=== PATIENT | female | born 1980 | race Caucasian/White ===

== ENCOUNTER 2016-09-25 08:15 | Outpatient (RCR) | payer OTHER ==
--- NOTE | 2016-09-02 15:13 | PT/OT/ST INITIAL EVALUATION ---
[facility], [facility]. PHYSICAL/OCCUPATIONAL THERAPY [address] [place] [id number] PLAN OF CARE/ASSESSMENT FOR OUTPATIENT REHABILITATION (Complete for Initial Claims Only) 1. PATIENT'S NAME Darby Melgar 2. ACC. No [id number] 3. REFERRING PHYSICIAN [facility] with Elsy Cloud MD 4. PRIMARY DX Neck pain with right upper back and arm radiculopathy. 5. SECONDARY DX 6. ONSET DATE November 2015. 7. REFERRAL DATE 08/20/2016 8. SOC. DATE/TIME 08/28/2016 9. PRIOR LEVEL OF FUNCTION; PERTINENT HISTORY (Prior therapy results, reason for referral.) S: Prior to therapy session, the patient did consent to today's evaluation and treatment. The patient is a 36-year-old female who presents to physical therapy from [facility] in order to address chronic neck and right-sided upper back and arm radicular symptoms. The patient reports in November 2015 she began experiencing tingling in the biceps that has since progressed into her thumb and the dorsum of her forearm on the right side. 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 She noticed the sensation to be constant, but was aggravated by pitching and throwing motions, as well as participating in team workouts. The patient does note a few weeks ago she began to notice increased tingling, however, she has not noticed any changes as far as strength related to her pain. Prior level of function: The patient was able to actively participate in all team workouts and practices without any pain. Current functional level: Currently the patient is unable to participate in any strengthening activities, as well as has limited her participation in throwing and pitching during softball practices. 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 Pain level is 5/10. It is constant and maximum pain level greatest at night is an 8 to 9/10. Aggravating factors: The patient notes her pain is aggravated by slouching, moving her arm in any way and bending or extending her neck. Relieving factors: Minimal relieving factors have been reported. Past medical history: Unremarkable. Medication list: The patient is currently taking Advil or ibuprofen as needed. The patient's goal for physical therapy is to have no pain or tingling in her neck and right upper extremity. 10. INITIAL ASSESSMENT/SAFETY PRECAUTIONS/MEDICAL COMPLICATIONS (Level of function at start of care. Be specific, use objective measures, list problems.) O: APPEARANCE AND OBSERVATION: Observation of the patient's posture in standing reveals neutral alignment throughout the body. She does demonstrate increased scapular winging with functional shoulder internal rotation. Mild decrease in the cervical lordosis. PALPATION: The patient demonstrates palpable tightness along the bilateral parascapular musculature, the alvarez surface of the right forearm, and throughout the bilateral thoracic and cervical paraspinals. SPECIAL TESTS: The patient demonstrates positive findings on the left cervical compression test to the left, positive ulnar nerve tension noted with the upper limb tension test on the right, and negative on the left for ulnar nerve, median, and radial nerve issues. The patient scored a 47.5% disability on the Trever and Mior cervical spine questionnaire. MOBILITY: The patient has hypomobility throughout C1 through C5 with increased pain with PA to the facets through those segments. She also has mild hypomobility throughout the upper thoracic spine. RANGE OF MOTION/FLEXIBILITY: Cervical flexion is limited to 10 degrees and painful. Extension 43 degrees, left cervical rotation 59 degrees and painful and right 72 degrees. STRENGTH: Bilateral shoulder flexion, abduction, and internal rotation strength are 5/5. Right external rotation strength 4/5, left 5/5. Bilateral elbow flexion and extension 5/5. TODAY'S TREATMENT: Today's treatment consisted of initiating manual therapy techniques to decrease muscle tightness and improve mobility throughout the mid cervical spine. Home exercise program was initiated to include cervical spine range of motion, active range of motion, upper trapezius stretching and upper extremity nerve glides. 11. 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 PROGNOSIS: The patient does have a good outcome with regular attendance to physical therapy, compliance with her home exercise program as well as activity modification recommendations. SHORT TERM GOALS x2 WEEKS: 1. The patient will improve right shoulder external rotation strength to 5/5. 2. The patient will demonstrate an improvement of left cervical rotation to be a minimum of 65 degrees. 3. The patient will report a 50% reduction in right upper extremity radicular symptoms and frequency of pain. CHCF GOALS x4 WEEKS: 1. The patient will have a 75% decreased in neck pain and right upper extremity radicular symptoms. 2. The patient will improve cervical flexion to be 20 degrees and pain no greater than a 2/10. 3. The patient will demonstrate normalized mobility with PAs to the C3 through C5 regions. The diagnosis, prognosis, treatment plan, risks, and expected outcomes were discussed with this patient and she is agreeable to today's established plan of care. P: Plan to see this patient 3 times a week for 4 weeks in order to address the above issues. Treatment will include modalities as needed including ultrasound, E-stim, combo and, if necessary, iontophoresis. Manual therapy techniques to include joint mobilizations and deep tissue mobilizations, therapeutic exercise, emphasis initially on protection of the neck and upper extremities, progressing to active range of motion and strengthening as the patient tolerates, and neuromuscular reeducation. The patient was issued a home exercise program and this will be progressed as needed. Thank you for the referral of this patient. 13. PHYSICIAN SIGNATURE ? ON FILE OR ENTER HERE: 15. DATE: I certify the need for these services furnished under this plan of care and if for partial hospitalization. 16. CERTIFICATION FROM THROUGH
== END 2016-09-30 12:00 | disposition home or self-care (01) ==
LOC: PT 08:15
PROVIDERS: ATTEND Physician Assistant Medical
DX: M54.2 Cervicalgia (principal); M54.12 Radiculopathy, cervical region